=== PATIENT | female | born 1990 | race Caucasian/White ===

== ENCOUNTER 2019-08-06 15:15 | Outpatient (CLI) | payer BC, SELFPAY ==
[2019-08-06 16:00] LABS: D Dimer 0.27 ug/mL (<0.48)
== END 2019-08-06 15:16 | disposition home or self-care (01) ==
PROVIDERS: PCP Internal Medicine; Visit Provider Nurse Practitioner
DX: R06.02 Shortness of breath (principal)
CPT/HCPCS: 36415; 85380

== ENCOUNTER 2019-08-08 12:35 | Outpatient (CLI) | payer BC, SELFPAY ==
--- NOTE | 2019-08-08 12:50 | ECHO_ITS ---
Patient Info Name: Tete Virk Age: 28 years : 1990 Gender: Female Ht: 66 in Wt: 225 lbs BSA: 2.22 m2 HR: 94 bpm BP: 126 / 95 mmHg Technical Quality: Good Exam Date: 08/08/2019 1:09 PM Exam Location: [facility] Patient Status: Outpatient Admit Date: 08/08/2019 Staff Ordering Physician: Rika Alcantara NP Returned Telephone Equipment Appraiser: Jaron Galo RDCS, RT Attending Provider: Rika Alcantara NP Referring Physician: Quinton BAXTER; Exam Type: CA echo doppler color flow Study Info Indications R06.02 - Shortness of breath Complete two-dimensional, color flow and Doppler transthoracic echocardiogram is performed. Summary 1. Left ventricular chamber dimension is normal. 2. Left ventricular systolic function is normal, estimated at 60-65%. 3. The left ventricular diastolic function is grade I diastolic dysfunction. 4. E/e' 6 is not elevated. 5. Global longitudinal strain is slightly abnormal at -16.7%. Left Ventricle E/e' 6 is not elevated. Global longitudinal strain is slightly abnormal at -16.7%. Left ventricular chamber dimension is normal. Left ventricular systolic function is normal, estimated at 60-65%. The left ventricular diastolic function is grade I diastolic dysfunction. Right Ventricle Right ventricular chamber dimension is normal. Right ventricular systolic function is normal. Left Atria Left atrial chamber dimension is normal. Right Atria Right atrial chamber dimension is normal. Aortic Valve The aortic valve is trileaflet. There is no aortic valve stenosis. There is no aortic valve regurgitation. Pulmonic Valve There is no pulmonic regurgitation. Mitral Valve There is no mitral valve stenosis. There is no mitral valve regurgitation. Tricuspid Valve There is no tricuspid valve regurgitation. Pericardium/Pleural There is no pericardial effusion. Inferior Vena Cava Normal inferior vena cava with >50% collapse upon inspiration consistent with normal right atrial pressure, 5 mmHg. Aorta The aortic root size at the sinus of Valsalva is normal. Left Ventricular Outflow Tract Name Value Normal LVOT 2D LVOT Diameter 2.1 cm LVOT Doppler LVOT Peak Gradient 3 mmHg LVOT Mean Gradient 2 mmHg LVOT VTI 17 cm LVOT VTI/AV VTI Ratio 0.8 LVOT Stroke Volume 58 ml LVOT CO 6.2 l/min LVOT CI 2.8 l/min/m2 Mitral Valve Name Value Normal MV Doppler MV Decel Costilla 577 cm/s2 MV PHT 41 ms MV Area (PHT) 5.3 cm2 4.0-5.0 MV Diastolic Function MV
== END 2019-08-08 12:36 | disposition home or self-care (01) ==
PROVIDERS: PCP Internal Medicine; Visit Provider Nurse Practitioner
DX: R06.02 Shortness of breath (principal); R94.31 Abnormal electrocardiogram [ECG] [EKG]
CPT/HCPCS: 93306

== ENCOUNTER 2019-08-09 09:28 | Outpatient (CLI) | payer BC, SELFPAY ==
[2019-08-09 09:45] LABS: Basophils Percent Auto 0.5 % (0.2-1.2); Eosinophils Absolute Auto 0.4 K/mm3 (0-0.3); Eosinophils Percent Auto 5.7 % (0-4.4); Hematocrit 42.9 % (37.0-47.0); Hemoglobin 14.3 g/dL (12.0-15.0); Immature Granulocyte Absolute 0.02 K/mm3 (0.00-0.031); Immature Granulocyte Percent A 0.3 % (0-0.5); Lymphocytes Absolute Auto 1.74 K/mm3 (0.9-3.2); Lymphocytes Percent Auto 26.6 % (18.3-44.2); Mean Corpuscular HGB Conc 33.3 g/dl (32-36); Mean Corpuscular Volume 92.9 fl (80-100); Mean Platelet Volume 10.2 fl (7.4-10.4); Monocytes Absolute Auto 0.4 K/mm3 (0.1-0.6); Monocytes Percent Auto 6.6 % (2.6-8.5); Neutrophils Percent Auto 60.3 % (45.5-73.1); Platelet Count Result 239 k/mm3 (150-375); Red Blood Count 4.62 M/mm3 (4.2-5.4); Red Cell Distribution Width 12.6 % (11.5-14.5); White Blood Count 6.5 K/mm3 (4.5-10.0)
[2019-08-09 10:00] LABS: Alanine Aminotransferase 22 U/L (4-35); Albumin Level 4.5 g/dL (3.5-5.1); Alkaline Phosphatase 75 U/L (38-126); Aspartate Amino Transferase 26 U/L (14-36); Bilirubin,Total 0.4 mg/dL (0.2-1.3); Blood Urea Nitrogen 14 mg/dL (7-17); Calcium 8.9 mg/dL (8.4-10.2); Carbon Dioxide 24 mmol/L (22-30); Chloride 103 mmol/L (98-107); Estimated Glomerular Filt Rate > 60; Glucose 124 mg/dL (65-105); Sodium 135 mmol/L (137-145)
== END 2019-08-09 09:29 | disposition home or self-care (01) ==
PROVIDERS: PCP Internal Medicine; Visit Provider Internal Medicine
DX: R06.02 Shortness of breath (principal); Z86.718 Personal history of other venous thrombosis and embolism
CPT/HCPCS: 36415; 80053; 84443; 85025

== ENCOUNTER 2019-08-09 14:45 | Outpatient (CLI) | payer BC, SELFPAY ==
--- NOTE | ~2019-08-09 | CT_ITS ---
EXAMINATION: CTA chest PE protocol EXAM DATE: 08/09/2019 15:26 INDICATION: Shortness of breath. TECHNIQUE: Spiral CTA of the chest (pulmonary arteries) was performed with 100 cc Omnipaque 350 intr avenous contrast injection. Images were acquired during the pulmonary arterial phase. Coronal maxi mum intensity projection 3D-reconstructions were created by the technologist on dedicated workstation . Axial, coronal and sagittal reformatted images were reviewed. The dose-length product (DLP) for t his examination was 552.45 mGy-cm. The exposure was tailored according to patient size (auto mA exp osure control), and iterative reconstruction (ASIR) was used as additional dose reduction technique. There is no prior study for comparison. FINDINGS: Pulmonary arteries are well opacified and without intraluminal filling defects. No thora cic aortic dissection. The lungs are clear. There are no pleural or pericardial effusions. Trach eobronchial tree is patent. There is no mediastinal, hilar or axillary lymphadenopathy. There is no pneumothorax. Heart normal in size. No evidence of coronary arterial calcification. Upper abd omen is unremarkable. There is thoracic spondylosis without osteoblastic or osteolytic lesions iden tified. IMPRESSION: 1. No pulmonary emboli or acute cardiopulmonary findings. Reviewed, dictated and finalized at location A.
== END 2019-08-09 14:46 | disposition home or self-care (01) ==
LOC: ANHIMG 14:46
PROVIDERS: PCP Internal Medicine; Visit Provider Nurse Practitioner
DX: R06.02 Shortness of breath (principal)
CPT/HCPCS: 71275; Q9967

== ENCOUNTER 2020-09-07 22:40 | Emergency (ER) | payer BC, SELFPAY ==
[2020-09-07 22:43] VITALS: BP 126/61; PULSE 91; RESP 16; TEMP 36.1; O2SAT 99
--- NOTE | 2020-09-07 22:55 | ECG_ITS ---
Measurements Intervals [place] Rate: 95 P: 55 DC: 170 QRS: 59 QRSD: 90 T: -34 QT: 330 QTc: 416 Interpretive Statements SINUS RHYTHM ST-T WAVE ABNORMALITY IN ANTEROLAT/INF LEADS- CONSIDER ISCHEMIA BASELINE ARTIFACT- I, II, III, AVR, AVL, AVF ABNORMAL ECG Electronically Signed On 09-08-2020 6:01:51 CDT by Ady White D.O.
[2020-09-07 22:56] VITALS: BP 133/75; PULSE 86; RESP 16; TEMP 36.1; O2SAT 99
[2020-09-07 23:04] LABS: Basophils Percent Auto 0.3 % (0.2-1.2); Eosinophils Absolute Auto 0.2 K/mm3 (0-0.3); Eosinophils Percent Auto 1.7 % (0-4.4); Hematocrit 45.1 % (37.0-47.0); Hemoglobin 15.5 g/dL (12.0-15.0); Immature Granulocyte Absolute 0.03 K/mm3 (0.00-0.031); Immature Granulocyte Percent A 0.3 % (0-0.5); Lymphocytes Absolute Auto 2.79 K/mm3 (0.9-3.2); Lymphocytes Percent Auto 26.3 % (18.3-44.2); Mean Corpuscular HGB Conc 34.4 g/dl (32-36); Mean Corpuscular Hemoglobin 30.6 pg (26-34); Mean Platelet Volume 10.1 fl (7.4-10.4); Monocytes Absolute Auto 0.7 K/mm3 (0.1-0.6); Monocytes Percent Auto 6.4 % (2.6-8.5); Neutrophils Absolute Auto 6.9 K/mm3 (1.3-6.7); Platelet Count Result 319 k/mm3 (150-375); Red Blood Count 5.07 M/mm3 (4.2-5.4); Red Cell Distribution Width 12.6 % (11.5-14.5); White Blood Count 10.6 K/mm3 (4.5-10.0)
--- NOTE | 2020-09-07 23:04 | ED.ABDPAIN ---
HPI - Abdominal Pain General Chief Complaint: Abdominal Pain Stated Complaint: vomiting for last hour Time Seen by Provider: 09/07/20 23:03 History of Present Illness HPI narrative: Nausea and vomiting for the past hour. Associated with abdominal cramping. She has not taken anything for her symptoms. No hematuria, dysuria, fever, diarrhea. Related Data Allergies Allergy/AdvReac Type Severity Reaction Status Date / Time morphine Allergy Unknown Itching Verified 09/07/20 23:10 Review of Systems Review of Systems: All systems reviewed & are unremarkable except as noted in HPI and below Constitutional: Constitutional: Reports fever(s) Cardiovascular: Cardiovascular: Denies chest pain Respiratory: Respiratory: Denies dyspnea Gastrointestinal: Gastrointestinal: Reports as per HPI Genitourinary: Genitourinary: Reports as per HPI Musculoskeletal: Musculoskeletal: Denies back pain [facility] Past Medical History Medical History History of arterial thrombosis Tobacco abuse Family History Family History Unknown Acute myocardial infarction Breast cancer Other Cerebrovascular accident Family history of malignant neoplasm of breast Social History Social History Smoking status: Current every day smoker Alcohol intake: current Exam Const: General: healthy appearing, no acute distress and alert Orientation/consciousness: patient oriented x3 HENMT: Head: normal to inspection Neck: Neck: normal visual inspection and no lymphadenopathy Chest: Chest palpation & inspection: no tenderness Resp: Effort & Inspection: normal respiratory effort Auscultation: clear to auscultation bilaterally, no rales, no rhonchi and no wheezes Cardio: Jugular venous distension: no JVD Rate: regular rate Rhythm: regular rhythm Heart sounds: no murmurs GI: Inspection: non-distended GI Palp: Yes Soft to palpation and Yes Tenderness to palpation present (GI) (mild, diffuse) Skin: General skin exam: normal color Neuro: General: patient oriented x3 and moves all extremities Speech: normal speech Extrem: General: no edema Psych: Appearance: well kempt Affect: normal affect Course Vital Signs Vital signs: Vital Signs Temperature 36.1 C L 09/07/20 22:43 Pulse Rate 91 09/07/20 22:43 Respiratory Rate 16 09/07/20 22:43 Blood Pressure 126/61 09/07/20 22:43 Pulse Oximetry 99 09/07/20 22:43 Temperature 36.1 C L 09/07/20 22:56 Pulse Rate 89 09/08/20 02:45 Respiratory Rate 20 09/08/20 02:45 Blood Pressure 120/71 09/08/20 02:45 Pulse Oximetry 96 09/08/20 02:45 MDM - Abdominal Pain Differential Diagnosis Differential diagnosis: Likely diverticulitis, gastroenteritis and pancreatitis Medical Records Attestation: I reviewed the patient's medical records. Lab Data Attestation: I reviewed the patient's lab results. Result diagrams: 09/07/20 22:48 09/07/20 22:48 Labs: Lab Results 09/07/20 09/07/20 09/07/20 Range/Units 22:48 22:48 22:48 WBC 10.6 H (4.5-10.0) K/mm3 RBC 5.07 (4.2-5.4) M/mm3 Hgb 15.5 H (12.0-15.0) g/dL Hct 45.1 (37.0-47.0) % MCV 89.0 (80-100) fl MCH 30.6 (26-34) pg MCHC 34.4 (32-36) g/dl RDW 12.6 (11.5-14.5) % Plt Count 319 (150-375) k/mm3 MPV 10.1 (7.4-10.4) fl Immature Gran % (Auto) 0.3 (0-0.5) % Neut % (Auto) 65.0 (45.5-73.1) % Lymph % (Auto) 26.3 (18.3-44.2) % Hawkins % (Auto) 6.4 (2.6-8.5) % Eos % (Auto) 1.7 (0-4.4) % Baso % (Auto) 0.3 (0.2-1.2) % Lymph # (Auto) 2.79 (0.9-3.2) K/mm3 Hawkins # (Auto) 0.7 H (0.1-0.6) K/mm3 Eos # (Auto) 0.2 (0-0.3) K/mm3 Baso # (Auto) 0.0 (0.0-0.1) K/mm3 Abs Immat Gran (auto) 0.03 (0.00-0.031) K/mm3 Absolute Neuts (auto) 6.9 H (1.3-6.7)
[2020-09-07 23:09] VITALS: BP 130/87; PULSE 94; RESP 20; O2SAT 97
--- NOTE | 2020-09-07 23:14 | PC.NURSE ---
Pt unable to void at this time. Refuses straight catheter. Urine cup at bedside.
[2020-09-07 23:32] VITALS: BP 130/78; PULSE 81; RESP 19; O2SAT 100
[2020-09-07 23:36] LABS: Alanine Aminotransferase 26 U/L (4-35); Albumin Level 4.7 g/dL (3.5-5.1); Alkaline Phosphatase 103 U/L (38-126); Anion Gap 10 mmol/L (8-16); Aspartate Amino Transferase 34 U/L (14-36); Bilirubin,Total 0.2 mg/dL (0.2-1.3); Blood Urea Nitrogen 15 mg/dL (7-17); Calcium 9.9 mg/dL (8.4-10.2); Carbon Dioxide 23 mmol/L (22-30); Chloride 103 mmol/L (98-107); Estimated CRCL calculation 104 ml/min; Estimated Glomerular Filt Rate > 60; Glucose 98 mg/dL (65-105); Lipase 194 U/L (23-300); Potassium 3.4 mmol/L (3.4-5.0); Sodium 136 mmol/L (137-145)
[2020-09-07 23:38] LABS: Troponin I < 0.012 ng/mL (0.000-0.034)
[2020-09-07 23:47] VITALS: BP 134/81; PULSE 85; RESP 20; O2SAT 98
--- NOTE | 2020-09-07 23:47 | PC.NURSE ---
Pt unable to void at this time. Refuses straight catheter.
[2020-09-08] VITALS (12 sets, daily range): BP systolic 103–122; BP diastolic 61–93; PULSE 69–97; RESP 14–25; O2SAT 96–99
[2020-09-08] MEDS: SODIUM CHLORIDE 0.9% IV 1,000 ML 999 ML IV CONT (00:09)
[2020-09-08] MEDS: ONDANSETRON INJ 4 MG/2 ML VIAL IV PUSH (00:09)
[2020-09-08] MEDS: SODIUM CHLORIDE 0.9% IV 1,000 ML 999 ML (00:09)
--- NOTE | 2020-09-08 00:37 | PC.NURSE ---
Verified with MD that only 2 L of fluids are wanted.
[2020-09-08 00:39] LABS: Add Urine Microscopic? YES; Appearance Urine Cloudy (Clear); Bacteria Urine 2+ /hpf; Bilirubin Urine Negative (Negative); Blood Urine Negative (Negative); Color Urine Amber (Yellow); Glucose Urine UA Negative (Negative); Ketones Urine 1+ mg/dL (Negative); Leukocyte Esterase Ur Negative LEU/UL (Negative); Mucus Urine Heavy /lpf; Nitrate Urine Positive (Negative); Protein Urine Negative (Negative); Specific Grav Ur 1.028 (1.001-1.035); Squamous Epithelial Cell Urine Many /hpf (Few); WBC Urine 16-20 /hpf
[2020-09-08] MEDS: KETOROLAC 30 MG/ML VIAL (*BKC) IV PUSH (01:43)
== END 2020-09-08 02:46 | disposition home or self-care (01) ==
PROVIDERS: Emergency Provider Emergency Medicine; PCP Internal Medicine
DX: N39.0 Urinary tract infection, site not specified (principal); R11.2 Nausea with vomiting, unspecified; F17.200 Nicotine dependence, unspecified, uncomplicated; R94.31 Abnormal electrocardiogram [ECG] [EKG]
CPT/HCPCS: 36415; 80053; 81001; 81025; 83690; 84484; 85025; 87077; 87086; 87088; 87186; 93005; 96361; 96365; 96375; 99284; J0696; J1885; J2405; J7030

== ENCOUNTER 2021-05-17 06:43 | Emergency (ER) | payer BC, SELFPAY ==
[2021-05-17 06:48] VITALS: BP 138/80; PULSE 94; RESP 18; TEMP 36.7; O2SAT 99
--- NOTE | 2021-05-17 08:05 | ED.SKABFB ---
HPI - Skin/Abscess/Foreign Bdy General Chief complaint: Skin/Abscess/Foreign Body Stated complaint: puss coming from umbilicus Time Seen by Provider: 05/17/21 07:32 Source: patient Mode of arrival: ambulatory Limitations: no limitations History of Present Illness HPI narrative: 30-year-old female Basically healthy She complains of tenderness of her bellybutton and a small amount of purulent discharge for a few days No fever She had a piercing but it was removed many years ago Related Data Allergies Allergy/AdvReac Type Severity Reaction Status Date / Time morphine Allergy Unknown Itching Verified 05/17/21 06:48 Review of Systems Constitutional: Constitutional: Denies chills, Denies fever(s) and Denies weakness Gastrointestinal: Gastrointestinal: Reports abdominal pain Integumentary/Breasts: Skin/Breast: Denies erythema and Denies rash PMFSH Past Medical History Medical History History of arterial thrombosis Tobacco abuse Family History Family History Unknown Acute myocardial infarction Breast cancer Other Cerebrovascular accident Family history of malignant neoplasm of breast Social History Social History Smoking status: Current every day smoker Alcohol intake: current Exam Const: General: no acute distress and alert Orientation/consciousness: patient oriented x3 Resp: Effort & Inspection: normal respiratory effort and not labored GI: Other: Around the umbilicus, there is no erythema suggestive of a bacterial cellulitis, and there is no rash suggestive of a fungal infection There is a teeny bit of purulent discharge within the umbilicus This is removed and there is a small superficial-looking ulcer that is pretty deep down on the lower left does not appear to have any abscess or anything like that associated with it Skin: General skin exam: normal color Rashes: no rashes Neuro: General: patient oriented x3 Speech: normal speech Course Vital Signs Vital signs: Vital Signs Temperature 36.7 C 05/17/21 06:48 Pulse Rate 94 05/17/21 06:48 Respiratory Rate 18 05/17/21 06:48 Blood Pressure 138/80 05/17/21 06:48 Pulse Oximetry 99 05/17/21 06:48 Temperature 36.7 C 05/17/21 06:48 Pulse Rate 94 05/17/21 06:48 Respiratory Rate 18 05/17/21 06:48 Blood Pressure 138/80 05/17/21 06:48 Pulse Oximetry 99 05/17/21 06:48 Discharge Plan Discharge Clinical Impression: Skin ulcer of abdomen Patient Disposition: Home, Self-Care Condition: Stable Instructions: Antibiotic Form, Cellulitis (ED) Additional Instructions: Clean the area thoroughly with a Q-tip and hydrogen peroxide 3 or 4 times a day and apply a small amount of an [id number] antifungal cream such as Monistat Prescriptions: New sulfamethoxazole-trimethoprim [Bactrim DS] 800-160 mg tablet 1 tablet PO Q12H Qty: 10 RF: 0 No Action nitrofurantoin monohyd/m-cryst [Macrobid] 100 mg capsule 100 mg PO Q12H 5 Days Qty: 10 RF: 0 ondansetron HCl [Zofran] 4 mg tablet 4 mg PO Q6H PRN (Reason: nausea and vomiting) Qty: 10 RF: 0 Follow-up/Referrals: Rylan Ortiz DO [Primary Care Provider] - (3 or 4 days, if needed)
== END 2021-05-17 08:21 | disposition home or self-care (01) ==
PROVIDERS: Emergency Provider Emergency Medicine; PCP Internal Medicine
DX: L98.499 Non-pressure chronic ulcer of skin of other sites with unspecified severity (principal); F17.200 Nicotine dependence, unspecified, uncomplicated
CPT/HCPCS: 99283

== ENCOUNTER 2023-03-07 12:00 | Outpatient (CLI) | payer BC, SELFPAY ==
--- NOTE | ~2023-03-07 | CT_ITS ---
EXAMINATION: CT abdomen pelvis w con DATE: 03/07/2023 12:36 INDICATION: Bilateral flank pain. History of clots in left kidney. TECHNIQUE: Computed tomography (CT) of the abdomen and pelvis was performed with 100 cc Omnipaque 350 intravenous contrast. The dose-length product was 1379.33 mGy-cm. Automated exposure control and ite rative reconstruction technique were employed. COMPARISON: None. FINDINGS: Lung bases are unremarkable. Heart size normal. No significant pleural or pericardial effus ion. Fatty infiltration of the liver. The spleen, pancreas, adrenal glands and kidneys are unremarkab le. Gallbladder is present. Nonobstructive bowel pattern. Normal appendix. There is a 3.3 cm right ad nexal cyst, likely ovarian. No significant free fluid or free air. No acute osseous abnormality. Blad mackenzie wall is mildly thickened which may be due to underdistention or cystitis. There is a urachal remn ant. IMPRESSION: 1. Right adnexal cyst measuring 3.3 cm, likely ovarian. 2: Mild bladder wall thickening which may be due to underdistention or cystitis. Correlate clinicall y. Reviewed, dictated and finalized at location B. INE WASHER IMPRESSION: 1. Right adnexal cyst measuring 3.3 cm, likely ovarian. 2: Mild bladder wall thickening which may be due to underdistention or cystiti s. Correlate clinically.
== END 2023-03-07 12:01 | disposition home or self-care (01) ==
PROVIDERS: PCP Internal Medicine; Visit Provider Clinical Nurse Specialist
DX: Z86.718 Personal history of other venous thrombosis and embolism (principal)
CPT/HCPCS: 74177; Q9967